=== PATIENT | female | born 1990 | race Caucasian/White ===

== ENCOUNTER 2024-03-25 14:25 | Inpatient (IN) | payer OTHER, SELFPAY ==
[2024-03-25] VITALS (11 sets, daily range): BP systolic 101–128; BP diastolic 64–90; BMI 43.5; BMI 40.6
--- NOTE | 2024-03-25 10:03 | ED.GENMED ---
History of Present Illness
General
Chief Complaint: Abdominal Pain
Time Seen by Provider: 03/25/24 10:02
Travel History
Have you had any contact with someone who has COVID-19?: No
Do you have any symptoms of coronavirus? Fever > 100 degrees, chills, cough, shortness of breath, sore throat, loss of taste or smell, muscle aches, or headache?: No
History of Present Illness
History of Present Illness:
HPI: The patient has about 3 days of lower abdominal cramping. She recently finished her period. She also reports some fevers to just over 100 degrees. She has no respiratory symptoms. The pain is primarily infraumbilical on both sides. She has
some decreased appetite. She gave 13 months ago. She has no pain in her back.
EXAM:
GENERAL: Well appearing in no distress
HEENT: Moist oral mucosa
CARDIOVASCULAR: No murmurs, normal heart rate, regular rhythm, No chest wall tenderness
PULMONARY: No respiratory distress, breath sounds are clear and equal
ABDOMEN: Soft with no peritoneal signs, mild lower abdominal tenderness diffusely, no upper tenderness, no significant tenderness at the periumbilical region
NEUROLOGIC: Excellent strength all extremities, no coordination deficits
PSYCHIATRIC: Appropriate mental status, normal insight and judgement
EXTREMITIES: Nontender, no edema, moves all extremities equally
SKIN: No rash, no lesions
TIME OF INITIAL ENCOUNTER: 10:05 AM
NUMBER AND COMPLEXITY OF PROBLEMS ADDRESSED AT THE ENCOUNTER
� Chronic conditions affecting care: ADHD
� Acute Exacerbation and/or Progression of Chronic Illness: This is an acute problem
� Differential Diagnosis includes: Appendicitis, colitis, mesenteric adenitis, epiploic appendagitis, UTI
AMOUNT AND/OR COMPLEXITY OF DATA TO BE REVIEWED AND ANALYZED
� I performed an independent evaluation of and my interpretation is:
EKG:
CT: I personally reviewed CT imaging and agree with radiologist interpretation that there is significant inflammatory changes consistent with diverticulitis with likely intramural abscess
X-rays:
Laboratory Studies: Mild leukocytosis noted with white count of 12.6, mild transaminase elevation, but bili and alk phos are normal, she does have an increased number of white cells in the urine however this appears to be more
of a contaminated specimen.
Other:
� Review of other/old records: The patient had unremarkable hysterosalpingogram 2021
� Clinical information was obtained by an independent historian: I spoke to at bedside
� Prescriptions/Medications Considered but not given:
� Further testing considered but not performed:
RISK OF COMPLICATIONS AND/OR MORBIDITY OR MORTALITY OF PATIENT MANAGEMENT
� Social determinants of health affecting care: Lives at home with family
� Discussion with other providers: Discussed with Dr. Hunt; Dr. Niño for admission at 1:20 PM
� Escalation of care including admission/observation vs risk of discharge considered: The patient has a few days of abdominal cramping�she does have tenderness in the lower abdomen. Will obtain CT imaging as she also has
tenderness in the right lower quadrant with loss of appetite. CT imaging abnormal�will plan admission for IV antibiotics�IV ordered Zosyn. Mild leukocytosis noted.
Past History
Past History
ED Past Medical History: None
ED Past Surgical History: None
Social History
Tobacco: Non-smoker
Drug: None
Personal: Single
Living: with family
Family History
Family History: Negative Early CAD
Phy Exam
Physical Exam
Physical Exam:
See HPI
Course
Orders/Labs/Results
Orders:
Orders
03/25/24 10:09
0.9% Sodium Chloride 1000 ml [Nss] 1,000 ml IV BOLUS
Ketorolac [Toradol] 15 mg IV NOW STA
03/25/24 10:10
Test Result ONCE
03/25/24 10:14
CT Abd/pelvis W Iv Cont Urgent
Comment:
Reason For Exam: lower abd pain tender; loss of appetite
03/25/24 10:28
Complete Blood Count/With Diff Urgent
Comprehensive Metabolic Panel Urgent
HCG, Serum Qualitative Screen Urgent
Lipase Urgent
03/25/24 10:31
Urinalysis Reflex To Culture Urgent
Date Specimen was Collected: 03/25/24
Time Specimen was Collected: 10:28
Urine Microscopic Reflex Cult Urgent
Urine Culture Urgent
[facility] Source: U
Specimen Description:
Date Specimen was Collected: 03/25/24
Time Specimen was Collected: 10:28
03/25/24 13:12
Piperacillin/Tazo 3.375 Gram [Zosyn] 3.375 gram in 50 ml IV NOW
03/25/24 13:15
Lactic Acid Q4H
Comment: CANCEL 2nd LACTIC ACID IF 1st LACTIC ACID IS LESS THAN 2
Blood Culture Q30M
[facility] Source: Blood/Venous
Specimen Description:
03/25/24 13:45
Blood Culture Q30M
[facility] Source: Blood/Venous
Specimen Description:
03/25/24 17:15
Lactic Acid Q4H
Comment: CANCEL 2nd LACTIC ACID IF 1st LACTIC ACID IS LESS THAN 2
Abnormal Lab Results
03/25/24 03/25/24
10:28 10:31
WBC 12.6 H 10^3/uL
(4.8-10.8)
Abs Immat Gran (auto) 0.1 H 10^3/uL
(0-0.05)
Absolute Neuts (auto) 10.1 H 10^3/uL
(1.4-6.5)
Absolute Monos (auto) 0.8 H 10^3/uL
(0.1-0.6)
Neutrophils % 79.8 H %
(42.2-75.2)
Lymphocytes % 11.8 L %
(20.5-51.1)
Creatinine 0.5 L mg/dL
(0.6-1.0)
Glucose 115 H mg/dl
(70-99)
AST 60 H U/L
(14-36)
ALT 58 H U/L
(0-35)
Urine Ketones Trace A
(Negative)
Urine Bilirubin 1+ A
(Negative)
Leukocyte Esterase Rfl 1+ A
(Negative)
Urine RBC 3-6 A /HPF
(0-2)
Urine WBC (Reflex) 11-15 A /HPF
(0-5)
Urine Bacteria (Reflex) Few A
(Negative)
03/25/24 10:28
03/25/24 10:28
Vital Signs
Initial and Last Documented VS:
Initial Vital Signs
Temp Pulse Resp BP Pulse Ox
98.0 F 91 20 116/80 99
03/25/24 09:52 03/25/24 09:52 03/25/24 09:52 03/25/24 09:52 03/25/24 09:52
Last Documented Vital Signs
Temp Pulse Resp BP Pulse Ox
98.0 F 76 11 105/64 98
03/25/24 09:52 03/25/24 12:15 03/25/24 12:45 03/25/24 12:38 03/25/24 12:45
*Critical Care Note
Total Time (30-74mins, 75-104mins- exclusive of procedures): Not Applicable
ED Attending Note
-
Portions of this chart may have been created with voice recognition software.� Occasional wrong word or��sound alike� substitutions may have occurred due to the inherent limitations of voice recognition software.
Discharge Plan
Departure
Patient Disposition: Admit
Date of Disposition: 03/25/24
Time of Disposition: 13:15
Presentation/result/management discussed w/ accepting MD/DO: Hospitalist
Discharge Problem:
Diverticulitis of intestine with abscess
Prescriptions:
No Action
lansoprazole [Prevacid] 30 MG capsule,delayed release(DR/EC)
30 mg PO DAILY Qty: 14 0RF
Rx Instructions:
Take in the evening
Referrals:
Luis Dominguez MD [Family Provider] -
Interventions
Interventions:
*Risk Screen - Suicide Last Done: 03/25/24 09:52
*General Assessment Last Done: 03/25/24 09:52
*Neglect/Abuse Screening Last Done: 03/25/24 09:52
ED- Fall Risk Assessment Last Done: 03/25/24 10:21
*ED COVID-19 Vaccine History Last Done: 03/25/24 10:20
GE-Wvdayu-Yelvfjcfke Assessment Last Done: 03/25/24 10:44
Discharge Date and Time
Print Language: KYRGYZ
--- NOTE | 2024-03-25 10:06 | EDRN ---
Dr. Griffith in room w/ pt at this time.
[2024-03-25] MEDS: NSS 1000 IV ×2 (10:32→16:17)
[2024-03-25] MEDS: TORADOL 15 MG IV (10:38)
[2024-03-25 10:41] LABS: % Basophils 0.2 % (0-2); % Eosinophils 1.7 % (0-6); % Immature Granulocytes 0.4 % (0-0.5); % Lymphocytes 11.8 % (20.5-51.1); % Monocytes 6.1 % (1.7-9.3); % Neutrophils 79.8 % (42.2-75.2); Absolute Eosinophils 0.2 10^3/uL (0-0.7); Absolute Immature Granulocytes 0.1 10^3/uL (0-0.05); Absolute Lymphocytes 1.5 10^3/uL (1.2-3.4); Absolute Monocytes 0.8 10^3/uL (0.1-0.6); Absolute Neutrophils 10.1 10^3/uL (1.4-6.5); Hemoglobin 12.7 g/dL (12.0-16.0); Mean Corp Hgb Conc. 33.4 g/dL (33.0-37.0); Mean Corpuscular Hgb 29.3 pg (27.0-31.0); Mean Corpuscular Volume 87.6 fL (81.0-99.0); Mean Platelet Volume 9.5 fL (7.4-10.4); Nucleated Red Blood Cells % 0 %; Platelet Count 253 10^3/uL (130-400); Red Blood Cell Count 4.34 10^6/uL (4.20-5.40); Red Cell Dist. Width 12.7 % (11.5-14.5); White Blood Cell Count 12.6 10^3/uL (4.8-10.8)
[2024-03-25 10:44] LABS: Urine Albumin Negative (Neg - Trace); Urine Bilirubin 1+ (Negative); Urine Character Slightly Cloudy (Clear); Urine Color Yellow; Urine Glucose Negative (Negative); Urine Ketone Trace (Negative); Urine Leukocyte 1+ (Negative); Urine Nitrite Negative (Negative); Urine Occult Blood Negative (Negative); Urine Specific Gravity 1.025 (<1.030); Urine Urobilinogen Negative (Neg - 1+)
[2024-03-25 10:56] LABS: HCG, Serum Qualitative Screen Negative
[2024-03-25 10:58] LABS: Urine Amorphous Seen; Urine Bacteria Few (Negative); Urine Squamous Cell >30 /LPF (Few)
[2024-03-25 10:59] LABS: ALT (SGPT) 58 U/L (0-35); AST (SGOT) 60 U/L (14-36); Albumin 3.7 g/dl (3.5-5.0); Alkaline Phosphatase 109 U/L (38-126); Blood Urea Nitrogen 10 mg/dl (7-17); Calcium 9.1 mg/dl (8.4-10.2); Carbon Dioxide 23 mmol/L (22-30); Chloride 106 mmol/L (98-107); Estimated Creatinine Clearance > 125 ml/min; Glucose 115 mg/dl (70-99); Potassium 4.1 mmol/L (3.5-5.1); Sodium 140 mmol/L (135-145); Total Bilirubin 0.6 mg/dl (0.2-1.3); Total Protein 6.7 g/dl (6.3-8.2); eGFR > 60.00
[2024-03-25 11:25] LABS: Lipase 40 U/L (23-300)
--- NOTE | 2024-03-25 13:18 | EDRN ---
Dr. Griffith in room w/pt at this time.
--- NOTE | 2024-03-25 13:26 | HPS.HSE ---
Family Physician
<GERHARD Rincon - Last Filed: 03/25/24 14:29>
-
Family Physician: Luis Dominguez
Chief Complaint
<GERHARD Rincon - Last Filed: 03/25/24 14:29>
-
Lower abdominal pain x 3 days
History of Present Illness
33-year-old female from home complaining of 3 days of lower abdominal cramping post menses. She reports low-grade temp of 100 F with decreased appetite for the last 3 days. She has been taking 460 mg to 3 times a day for pain. She denies
headache, fever, chills, chest pain, palpitations, shortness with, cough, nausea, urinary symptoms. In the ER she was noted to have sigmoid diverticulitis with intramural abscess. Past medical history includes ADHD, 1 para 1
section 13 months ago.
Medical History
<GERHARD Rincon - Last Filed: 03/25/24 14:29>
Past Medical History
Past Medical History: Reports Other (ADHD)
Past Surgical History: Reports Other ( section x 113 months ago)
Social History
Tobacco: Non-smoker
Alcohol: Occasional
Drug: None
Personal:
Living: With Family ( and child)
Family History
Family History: Other (Father hypertension)
Allergies / Home Medications
Allergies reflects when Allergies were last updated in [facility] [facility].
Home Medications with original date entered in [facility] [facility]
Allergy/Medication List:
Allergies
Allergy/AdvReac Type Severity Reaction Status Date / Time
Sulfa (Sulfonamide Allergy Unknown Verified 03/25/24 09:59
Antibiotics)
Home Medications
ibuprofen 200 mg tablet (Advil) 200 mg PO TIDPRN PRN mild pain 03/25/24
methylphenidate HCl 36 mg tablet,extended release 24 hr 36 mg PO MOTUWETHFR 03/25/24
Review of Systems
<GERHARD Rincon - Last Filed: 03/25/24 14:29>
-
History Source: Patient
A 12 point ROS was completed and negative except as noted: Yes
Constitutional: Denies Fever, Fatigue or Chills
EENT: Denies Sore Throat or Runny Nose
Respiratory: Denies Cough or Trouble Breathing
Cardiac: Denies Chest Pain, Palpitations or Syncope
Abdomen/GI: Reports Abdominal Pain (Suprapubic, left lower quadrant); Denies Nausea, Vomiting, Diarrhea or Constipated
: Denies Dysuria, Frequency, Flank Pain or Incontinence
Musculoskeletal: Denies Joint Pain or Edema
Skin: Denies Itching or Rash
Neurological: Denies Dizzy, Headache or Weakness
Endocrine: Reports No Symptoms
Hematologic/Lymphatic: Reports No Symptoms
Psych: Reports Calm
Physical Exam
<GERHARD Rincon - Last Filed: 03/25/24 14:29>
Vital Signs
Vital Signs
Temp Pulse Resp BP Pulse Ox
98.0 F 76 11 105/64 98
03/25/24 09:52 03/25/24 12:15 03/25/24 12:45 03/25/24 12:38 03/25/24 12:45
Physical Exam
General: Comfortable, Conversant and Pain; No Fever or Chills
HEENT: NormoCephalic, Anicteric, Moist mucous membranes, PERRLA and [place] Conjunctivae
Respiratory: Clear; No Wheezes, Rales or Rhonchi
Cardiac: S1/S2 and Regular Rhythm; No Murmur, Rub or Gallop
Breast: Deferred by me
GI: Soft, Non Distended, Normal Bowel Sounds, Tender (Left lower quadrant, suprapubic) and No Hepatosplenomegaly
Genito-urinary: Deferred by me
Musculoskeletal: No Clubbing, No Cyanosis and No Edema
Skin: Warm and Dry; No Rash or Jaundice
Neuro: AO x 3, No Motor Deficits, Nonfocal/grossly intact, Cranial Nerves Intact and No Sensory Deficits; No Slurred Speech, Facial Droop or Tremors
Psych: Calm
Laboratory Results
<GERHARD Rincon - Last Filed: 03/25/24 14:29>
-
03/25/24 10:28
03/25/24 10:28
Laboratory Results
Total Bilirubin 0.6 mg/dl (0.2-1.3) 03/25/24 10:28
AST 60 U/L (14-36) H 03/25/24 10:28
ALT 58 U/L (0-35) H 03/25/24 10:28
Alkaline Phosphatase 109 U/L (38-126) 03/25/24 10:28
Lipase 40 U/L (23-300) 03/25/24 10:28
Data Reviewed
<GERHARD Rincon - Last Filed: 03/25/24 14:29>
-
CT Scan: Report Reviewed by me
Lab Data: Labs Reviewed by me
Impression/Plan
<GERHARD Rincon - Last Filed: 03/25/24 14:29>
-
Impression/plan:
Admit to [facility]
#Acute diverticulitis sigmoid colon with intramural abscess
-WBC 12.6 with left shift, 98 F, HR 76, 105/64
-Blood cultures x 2
-N.p.o. except sips water
-IV NSS
-IV Zosyn
-IV Toradol, IV Zofran
-Consult colorectal surgery
- pt counseled on follow up for colonoscopy post recovery
CT abdomen pelvis with IV contrast:
1. Severe acute diverticulitis in the mid sigmoid colon
2. 2.6 intramural abscess in the wall of the sigmoid colon 2.0 x 1.7 x 2.6 cm
3. Minimal pelvic ascites
4. Mild hepatomegaly
5. Tiny obstructing bilateral intrarenal calculi
#Acute transaminitis likely reactive
AST 60, ALT 58
-Follow CMP
#ADHD
Patient takes methylphenidate 36 mg Tuesday through Tuesday but not Tuesday or Tuesday
DVT prophylaxis
SCDs
Full code
<Saman Niño MD - Last Filed: 03/25/24 14:44>
-
Impression/plan:
Admit to [facility]
#Acute diverticulitis sigmoid colon with intramural abscess
-WBC 12.6 with left shift, 98 F, HR 76, 105/64
-Blood cultures x 2
-N.p.o. except sips water
-IV NSS
-IV Zosyn
-IV Toradol, IV Zofran
-Consult colorectal surgery
- pt counseled on follow up for colonoscopy post recovery
CT abdomen pelvis with IV contrast:
1. Severe acute diverticulitis in the mid sigmoid colon
2. 2.6 intramural abscess in the wall of the sigmoid colon 2.0 x 1.7 x 2.6 cm
3. Minimal pelvic ascites
4. Mild hepatomegaly
5. Tiny obstructing bilateral intrarenal calculi
#Acute transaminitis likely reactive
AST 60, ALT 58
-Follow CMP
#ADHD
Patient takes methylphenidate 36 mg Tuesday through Tuesday but not Tuesday or Tuesday
DVT prophylaxis
SCDs
Full code
Addendum
I saw and examined the patient.
The [employer] [facility]ENT CALL C[facility] AGENT or PA's note was reviewed and I agree with the note.
Comment:
33 yo female presented with left lower abdominal pain and fevers. She denies nausea or vomiting. She denies diarrhea or constipation. In the ER she was noted to have sigmoid diverticulitis with intramural abscess. She denied family history of
diverticulitis or colon cancer.
Physical Exam
General: Comfortable, Conversant and Pain; No Fever or Chills
HEENT: NormoCephalic, Anicteric, Moist mucous membranes, PERRLA and [place] Conjunctivae
Respiratory: Clear; No Wheezes, Rales or Rhonchi
Cardiac: S1/S2 and Regular Rhythm; No Murmur, Rub or Gallop
GI: Soft, Non Distended, Normal Bowel Sounds, Tender (Left lower quadrant, suprapubic)
Genito-urinary: No [place]
Musculoskeletal: No Clubbing, No Cyanosis and No Edema
Skin: Warm and Dry; No Rash or Jaundice
Neuro: AO x 3, No Motor Deficits, Nonfocal/grossly intact, Cranial Nerves Intact and No Sensory Deficits; No Slurred Speech, Facial Droop or Tremors
Psych: Calm
# Acute diverticulitis sigmoid colon with intramural abscess
Mild Sepsis POA
-WBC 12.6 with left shift, 98 F, HR 76, 105/64
-Blood cultures x 2
-N.p.o. except sips water
-IV NSS
-IV Zosyn
-IV Toradol, IV Zofran
- Appreciate surgery help
- pt counseled on follow up for colonoscopy post recovery
CT abdomen pelvis with IV contrast:
1. Severe acute diverticulitis in the mid sigmoid colon
2. 2.6 intramural abscess in the wall of the sigmoid colon 2.0 x 1.7 x 2.6 cm
3. Minimal pelvic ascites
4. Mild hepatomegaly
5. Tiny obstructing bilateral intrarenal calculi
#Acute transaminitis likely reactive
AST 60, ALT 58
No Jaundice
-Follow CMP
# Obesity BMI 43
#ADHD
Patient takes methylphenidate 36 mg Tuesday through Tuesday but not Tuesday or Tuesday
DVT prophylaxis
Total time spent to see the patient, examine the patient on the floor, review data and lab results, discuss treatment plan with patient, ER doctor and nursing staff around 75 minutes
--- NOTE | 2024-03-25 13:42 | EDRN ---
Halima Baldwin EARLY HEAD START DIRECTOR in to see pt at this time.
[2024-03-25 13:47] LABS: Lactic Acid 0.7 mmol/L (0.7-2.0)
[2024-03-25] MEDS: ZOSYN 50 IV ×2 (13:51→20:04)
--- NOTE | 2024-03-25 13:54 | EDRN ---
Aleena PACHECO w/ general surgery/Dr. Hunt is in room w/ pt at this time.
--- NOTE | 2024-03-25 14:04 | CON.CRS ---
Addendum entered and electronically signed by Vincent Hunt MD 03/25/24 17:33:
Patient seen and examined independently of nurse practitioner. Agree with documented consultation which is consistent with my current examination and evaluation of the patient.
HPI: 33-year-old female who was in her baseline state of health until evening when she began to notice abdominal pain and cramping predominantly in the suprapubic and left lower quadrant. Pain persisted and increased in severity throughout
the weekend. She has been able to tolerate a diet including solid food but has been eating business development intern. No anorexia. No nausea, no vomiting. No significant abdominal bloating or distention. She states that she continues to pass flatus and have
bowel movement once which appear regular for her, no diarrhea or constipation. Her pain has been relatively stable for the last day or so but last night she had a fever to 101.3. With her constellation of symptoms not improving she presented for
emergency department evaluation today which has identified sigmoid diverticulitis with an intramural abscess.
On further discussion she has never had any similar pain like this in the past.
She denies any significant pertinent medical history. Past surgical history only notable for . No prior colonoscopies and GI health previously well.
Afebrile since emergency department evaluation. Vital signs are stable
No acute distress, comfortably lying in hospital bed
Abdomen: Soft, tenderness to palpation with voluntary guarding and rebound on deep palpation left lower quadrant and suprapubic. No generalized tenderness and nontender on palpation in the upper abdomen and right lower quadrant.
Laboratory testing reviewed. White blood cell count 12.6 with neutrophil shift. BMP unremarkable.
CT abdomen/pelvis personally reviewed and interpreted as well as radiologist report. Sigmoid: Wall thickening with suspected intramural abscess. Some localized extraluminal air around this area of phlegmonous changes. No will organize abscess for
drainage. Trace free fluid. No remote extraluminal air.
Assessment/plan: 33-year-old female presenting with acute sigmoid diverticulitis complicated by phlegmon extending into region of sigmoid colon mesentery and contained mural abscess. No remote free air or signs of free perforation.
Abdominal examination with localized peritonitis to the left lower quadrant, not generalized. Vital signs stable without signs of sepsis.
Given patient's stability we discussed continued plan for medical management.
Reviewed pathophysiology and natural history of diverticular disease
Continue bowel rest
IV fluid hydration
Zosyn for empiric antibiotic coverage
Repeat CBC tomorrow a.m., follow fever curves, follow abdominal examination.
Consideration for repeat imaging pending clinical course.
Will follow.
Original Note:
Consultation
-
Requesting Provider: Nacho
Performing Provider: Jann Hunt
Reason for Consultation: Diverticulitis
Medical History
-
Chief Complaint: fevers, abdominal pain
History of Present Illness:
This is a 33 yo female with a history of who presents with left lower abdominal pain and fevers. Her pain began on evening in the left abdomen to suprapubic areas. Initially, she attributed her discomfort to menstrual cramps;
however, the pain persisted and she began having fevers as well all through the weekend. Last night she reports a fever of 101.3. She denies nausea or vomiting. She denies diarrhea or constipation. She has been eating light foods but denies
decreased appetite. Given her persistent pain with fevers, she presented today through the ED for evaluation.
Past Medical History
Past Medical History: Psychiatric (ADHD)
Past Surgical History:
Social History
Tobacco: Non-Smoker
Alcohol: Occasional
Living: With Family
Family History
Family History: Reviewed & Not Pertinent
Allergies / Home Medications
Allergy/AdvReac Type Severity Reaction Status Date / Time
Sulfa (Sulfonamide Allergy Unknown Verified 03/25/24 09:59
Antibiotics)
�Medication �Instructions �Recorded �Confirmed �Type
ibuprofen 200 mg tablet (Advil) 200 mg PO TIDPRN PRN mild pain 03/25/24 03/25/24 History
methylphenidate HCl 36 mg 36 mg PO MOTUWETHFR 03/25/24 03/25/24 History
tablet,extended release 24 hr
Review of Systems
-
History Source: Patient
All other systems: Negative unless noted
A 10 point review of systems was completed, and was negative except as per HPI.
Physical Exam
Vital Signs
Temp 98.0 F 03/25/24 09:52
Pulse 85 03/25/24 13:00
Resp Rate 20 03/25/24 13:00
Blood pressure 106/78 03/25/24 13:00
SaO2 98 03/25/24 13:00
03/24/24 03/25/24 03/26/24
06:59 06:59 06:59
Actual Weight 107.7 kg
Body Mass Index (BMI) 43.5
Lab Results / Allergies
03/25/24 10:28
03/25/24 10:28
WBC 12.6 10^3/uL (4.8-10.8) H 03/25/24 10:28
Hgb 12.7 g/dL (12.0-16.0) 03/25/24 10:28
Hct 38.0 % (37.0-47.0) 03/25/24 10:28
Plt Count 253 10^3/uL (130-400) 03/25/24 10:28
Abs Immat Gran (auto) 0.1 10^3/uL (0-0.05) H 03/25/24 10:28
Neutrophils % 79.8 % (42.2-75.2) H 03/25/24 10:28
Allergy/AdvReac Type Severity Reaction Status Date / Time
Sulfa (Sulfonamide Allergy Unknown Verified 03/25/24 09:59
Antibiotics)
Physical Exam
General: Well Developed, Well Nourished and No Apparent Distress
HEENT: Moist Mucous Membranes
Respiratory: Non Labored Respirations
GI: Soft and Tender (left lower quadrant with focal area of tenderness just left of midline)
Neuro: Awake, Alert and AO x 3
Psych: Calm
Data Reviewed
-
CT Scan: Image Personally Visualized and interpreted, Report Reviewed by me, Discussed with Physician, Discussed with Nurse and Discussed with Patient
Labs: Labs Reviewed by me, Discussed with Physician, Discussed with Nurse and Discussed with Patient
Old Records: Reviewed
Assessment / Plan
-
33 yo female presenting with 3-4 day history of LLQ pain and intermittent fevers. She is tender to the LLQ on exam with CT findings consistent with sigmoid diverticulitis complicated by a 2.6 cm intramural abscess in the wall of the sigmoid colon
without free air or perforation noted. Mild leukocytosis present. Afebrile here, VSS. Denies n/v/c/d.
No plan for emergent surgery at this time. Will follow exams, labs, fever trend with bowel rest and IV antibiotics.
--NPO with sips of clears
--Continue IV abx
--IVF for hydration
--Analgesics prn
--Discussed with admitting hospitalist team
--- NOTE | 2024-03-25 14:41 | EDRN ---
Pt states that pain is at a 2/10 at this time but she keeps getting flare ups that last tamir 20-30 seconds at 8-10/10.
[2024-03-25] MEDS: TORADOL 30 MG IV (16:37)
[2024-03-25] MEDS: TYLENOL 650 MG PO (21:01)
[2024-03-26] MEDS: NSS 1000 IV ×2 (01:52→13:34)
[2024-03-26] MEDS: ZOSYN 50 IV ×4 (01:52→20:03)
[2024-03-26 05:51] LABS: % Basophils 0.2 % (0-2); % Eosinophils 1.8 % (0-6); % Immature Granulocytes 0.5 % (0-0.5); % Lymphocytes 13.6 % (20.5-51.1); % Neutrophils 77.9 % (42.2-75.2); Absolute Eosinophils 0.2 10^3/uL (0-0.7); Absolute Immature Granulocytes 0.1 10^3/uL (0-0.05); Absolute Lymphocytes 1.7 10^3/uL (1.2-3.4); Absolute Monocytes 0.7 10^3/uL (0.1-0.6); Absolute Neutrophils 9.7 10^3/uL (1.4-6.5); Hematocrit 35.8 % (37.0-47.0); Mean Corp Hgb Conc. 33.5 g/dL (33.0-37.0); Mean Corpuscular Hgb 29.1 pg (27.0-31.0); Mean Corpuscular Volume 86.9 fL (81.0-99.0); Mean Platelet Volume 9.6 fL (7.4-10.4); Nucleated Red Blood Cells % 0 %; Platelet Count 271 10^3/uL (130-400); Red Blood Cell Count 4.12 10^6/uL (4.20-5.40); Red Cell Dist. Width 12.4 % (11.5-14.5); White Blood Cell Count 12.4 10^3/uL (4.8-10.8)
[2024-03-26 06:14] LABS: ALT (SGPT) 69 U/L (0-35); AST (SGOT) 42 U/L (14-36); Albumin 3.3 g/dl (3.5-5.0); Alkaline Phosphatase 106 U/L (38-126); Blood Urea Nitrogen 10 mg/dl (7-17); Calcium 8.6 mg/dl (8.4-10.2); Carbon Dioxide 21 mmol/L (22-30); Chloride 109 mmol/L (98-107); Estimated Creatinine Clearance > 125 ml/min; Glucose 80 mg/dl (70-99); Potassium 4.1 mmol/L (3.5-5.1); Sodium 139 mmol/L (135-145); Total Bilirubin 0.9 mg/dl (0.2-1.3); Total Protein 6.2 g/dl (6.3-8.2); eGFR > 60.00
[2024-03-26 07:00] VITALS: BP 112/76
[2024-03-26 09:53] VITALS: BMI 40.6
--- NOTE | 2024-03-26 10:11 | PTOTSP ---
ORDERS RECEIVED AND CHART REVIEWED. PATIENT IS A 33 Y/O ADMITTED WITH ACUTE DIVERTICULITIS. PATIENT OBSERVED IN ROOM, STANDING AT SINK INDEPENDENTLY, NO ISSUES REPORTED. PATIENT IS DECLINING THE NEED FOR ACUTE CARE SKILLED P.T. WILL DISCHARGE FROM
P.T. SERVICES AT THIS TIME.
--- NOTE | 2024-03-26 10:49 | W.PN.GS2 ---
Addendum entered and electronically signed by Laith Mcclellan MD 03/26/24 16:32:
I saw and examined the patient independently.
The Instructional Technology Instructor's note was reviewed and I agree with the note, assessment and plan except where noted below.
Comment: 33-year-old female who presents with first episode of diverticulitis, uncomplicated transmural abscess noted on CT. Clinically improving.
Clears today, anticipate advancing to a low residue diet tomorrow.
Potential discharge home on 7 to 10-day course of antibiotics tomorrow.
General surgery will continue to follow, patient will see Dr. Hunt as an outpatient. Anticipate colonoscopy in 6 to 8 weeks.
Original Note:
Today's Communication / Plan
-
Clear liquids
Assessment / Plan
-
Assessment/plan: 33-year-old female presenting with acute sigmoid diverticulitis complicated by phlegmon extending into region of sigmoid colon mesentery and contained mural abscess. No remote free air or signs of free perforation.
Abdominal examination with localized peritonitis to the left lower quadrant, not generalized. Vital signs stable without signs of sepsis.
WBC similiar to previous but no further fevers. Tmax 99.8. VSS
Clear liquids
IV fluid hydration
Zosyn for empiric antibiotic coverage
Follow CBC and exams
Consideration for repeat imaging pending clinical course.
Will follow.
Subjective Data
-
Date of Service: March 26, 2024
Patient seen and examined at bedside. Feeling a little better although pain remains. No further fevers.
Objective Data
-
Intake and Output
03/25/24 03/26/24 03/27/24
06:59 06:59 06:59
Intake Total 1200 / 1200
Output Total 0 / 0
Balance 1200 / 1200
Intake:
Oral fluids 0 / 0
IV fluids (Total) 1100 / 1100
IV piggybacks 100 / 100
Output:
Urine, Voided 0 / 0
Other:
Number of approximated MODERATE 2
amounts of urine
Vital Signs
Temp Pulse Resp BP Pulse Ox
99.8 F 96 18 112/76 98
03/26/24 07:00 03/26/24 07:00 03/26/24 07:00 03/26/24 07:00 03/26/24 07:00
Lab Results
03/26/24 05:25
03/26/24 05:25
Calcium 8.6 mg/dl (8.4-10.2) 03/26/24 05:25
Total Bilirubin 0.9 mg/dl (0.2-1.3) 03/26/24 05:25
AST 42 U/L (14-36) H 03/26/24 05:25
ALT 69 U/L (0-35) H 03/26/24 05:25
Alkaline Phosphatase 106 U/L (38-126) 03/26/24 05:25
Total Protein 6.2 g/dl (6.3-8.2) L 03/26/24 05:25
Albumin 3.3 g/dl (3.5-5.0) L 03/26/24 05:25
Physical Exam
-
NAD
ABD soft, tender to light palpation to the LLQ, ND, MOTION PICTURE FILM EXAMINER
--- NOTE | 2024-03-26 11:53 | W.PN.HOSP.TC ---
Today's Communication/Plan
-
Monitor vital signs and see plan
Continue with antibiotics
Pain control
started clears; monitor
Colorectal surgery following
Assessment / Plan
Assessment / Plan
General: Comfortable, Conversant and Pain
HEENT: NormoCephalic, Anicteric, Moist mucous membranes
Respiratory: Clear; No Wheezes, Rales or Rhonchi
Cardiac: S1/S2 and Regular Rhythm; No Murmur
GI: Soft, Non Distended, Normal Bowel Sounds, Tender (Left lower quadrant, suprapubic)
Musculoskeletal: No Clubbing, No Cyanosis and No Edema
Neuro: AO x 3, No Motor Deficits, Nonfocal/grossly intact
Psych: Calm
Acute diverticulitis sigmoid colon with intramural abscess
follow bcx
now started on clears
IVF
cw abx
pain control, IV Zofran
colorectal surgery following
- pt counseled on follow up for colonoscopy post recovery
CT abdomen pelvis with IV contrast:
1. Severe acute diverticulitis in the mid sigmoid colon
2. 2.6 intramural abscess in the wall of the sigmoid colon 2.0 x 1.7 x 2.6 cm
3. Minimal pelvic ascites
4. Mild hepatomegaly
5. Tiny obstructing bilateral intrarenal calculi
#Acute transaminitis likely reactive
-Follow CMP
#ADHD
Patient takes methylphenidate 36 mg Tuesday through Tuesday but not Tuesday or Tuesday; per patient she takes only when she is working. spoke with pharmacy,will hold it for now
DVT prophylaxis
SCDs
Full code
Anticipated Discharge: 24 - 48 hours
Subjective/Interval History
-
Date of Service: March 26, 2024
still has some abdominal pain
Objective Data
-
Labs:
Laboratory Results
03/26/24
05:25
WBC 12.4 H
Hgb 12.0
Hct 35.8 L
Plt Count 271
Sodium 139
Potassium 4.1
Chloride 109 H
Carbon Dioxide 21 L
BUN 10
Creatinine 0.6
Glucose 80
Calcium 8.6
Total Bilirubin 0.9
AST 42 H
ALT 69 H
Alkaline Phosphatase 106
Vital Signs:
Vital Signs
Temp Pulse Resp BP Pulse Ox
99.8 F 96 18 112/76 98
03/26/24 07:00 03/26/24 07:00 03/26/24 07:00 03/26/24 07:00 03/26/24 07:00
I&O
03/25/24 03/26/24 03/27/24
06:59 06:59 06:59
Intake Total 1200 / 1200
Output Total 0 / 0
Balance 1200 / 1200
[2024-03-26 15:00] VITALS: BP 112/71
--- NOTE | 2024-03-26 16:13 | CM ---
Alert awake oriented patient who lives with [facility] 1 story home with 1 step to enter and 0 steps to bed room . She is independent in driving and all activities of daily living.Offered VN she declined.
No SNF/VN hx
Pharmacy [facility]
PCP Dr Omalley
PLAN Home no needs
[2024-03-26] MEDS: TYLENOL 650 MG PO (18:31)
[2024-03-26] MEDS: TORADOL 30 MG IV (20:07)
[2024-03-26 23:00] VITALS: BP 114/81
[2024-03-27] MEDS: NSS 1000 IV (00:33)
[2024-03-27] MEDS: ZOSYN 50 IV ×4 (02:22→20:58)
[2024-03-27 05:56] LABS: % Basophils 0.3 % (0-2); % Eosinophils 3.5 % (0-6); % Immature Granulocytes 0.3 % (0-0.5); % Lymphocytes 24.8 % (20.5-51.1); % Monocytes 8.1 % (1.7-9.3); Absolute Eosinophils 0.3 10^3/uL (0-0.7); Absolute Lymphocytes 1.9 10^3/uL (1.2-3.4); Absolute Monocytes 0.6 10^3/uL (0.1-0.6); Absolute Neutrophils 4.9 10^3/uL (1.4-6.5); Hematocrit 32.8 % (37.0-47.0); Hemoglobin 11.1 g/dL (12.0-16.0); Mean Corp Hgb Conc. 33.8 g/dL (33.0-37.0); Mean Corpuscular Hgb 29.1 pg (27.0-31.0); Mean Corpuscular Volume 86.1 fL (81.0-99.0); Mean Platelet Volume 9.3 fL (7.4-10.4); Nucleated Red Blood Cells % 0 %; Platelet Count 259 10^3/uL (130-400); Red Blood Cell Count 3.81 10^6/uL (4.20-5.40); Red Cell Dist. Width 12.4 % (11.5-14.5); White Blood Cell Count 7.8 10^3/uL (4.8-10.8)
[2024-03-27 06:10] LABS: ALT (SGPT) 38 U/L (0-35); AST (SGOT) 16 U/L (14-36); Albumin 2.8 g/dl (3.5-5.0); Alkaline Phosphatase 85 U/L (38-126); Blood Urea Nitrogen 7 mg/dl (7-17); Calcium 8.3 mg/dl (8.4-10.2); Carbon Dioxide 27 mmol/L (22-30); Chloride 109 mmol/L (98-107); Estimated Creatinine Clearance > 125 ml/min; Glucose 94 mg/dl (70-99); Potassium 3.9 mmol/L (3.5-5.1); Sodium 141 mmol/L (135-145); Total Bilirubin 0.4 mg/dl (0.2-1.3); Total Protein 5.4 g/dl (6.3-8.2); eGFR > 60.00
[2024-03-27 07:00] VITALS: BP 121/85
--- NOTE | 2024-03-27 08:19 | W.PN.GS2 ---
Today's Communication / Plan
-
-- LRD
-- HLIV
-- Zosyn for empiric antibiotic coverage, Augmenin on DC
-- Tentative plan for DC tomorrow on 7 to 10-day course of antibiotics tomorrow.
-- General surgery will continue to follow, patient will see Dr. Hunt as an outpatient. Anticipate colonoscopy in 6 to 8 weeks.
Assessment / Plan
-
Assessment/plan: 33-year-old female presenting with acute sigmoid diverticulitis complicated by phlegmon extending into region of sigmoid colon mesentery and contained mural abscess. No remote free air or signs of free perforation.
AVSS
Leukocytosis resolved
Tolerating diet advancement
-- LRD
-- HLIV
-- Zosyn for empiric antibiotic coverage, Augmentin on DC
-- Tentative plan for DC tomorrow on 7 to 10-day course of antibiotics tomorrow.
-- General surgery will continue to follow, patient will see Dr. Hunt as an outpatient. Anticipate colonoscopy in 6 to 8 weeks.
Subjective Data
-
Date of Service: March 27, 2024
Pain improved, continued mild discomfort with flexing of the abdomen or palpation. No fevers. No nausea or vomiting. Passing flatus and nonbloody stools. Ambulating. Voiding.
Objective Data
-
Intake and Output
03/26/24 03/27/24 03/28/24
06:59 06:59 06:59
Intake Total 1200 / 1200 600 / 600
Output Total 0 / 0
Balance 1200 / 1200 600 / 600
Intake:
Oral fluids 0 / 0 600 / 600
IV fluids (Total) 1100 / 1100
IV piggybacks 100 / 100
Output:
Urine, Voided 0 / 0
Other:
Number of approximated MODERATE 2 2
amounts of urine
Number of approximated LARGE 1
amounts of urine
Vital Signs
Temp Pulse Resp BP Pulse Ox
98.7 F 85 18 121/85 98
03/27/24 07:00 03/27/24 07:00 03/27/24 07:00 03/27/24 07:00 03/27/24 07:00
Lab Results
03/27/24 05:25
03/27/24 05:25
Calcium 8.3 mg/dl (8.4-10.2) L 03/27/24 05:25
Total Bilirubin 0.4 mg/dl (0.2-1.3) 03/27/24 05:25
AST 16 U/L (14-36) 03/27/24 05:25
ALT 38 U/L (0-35) H 03/27/24 05:25
Alkaline Phosphatase 85 U/L (38-126) 03/27/24 05:25
Total Protein 5.4 g/dl (6.3-8.2) L 03/27/24 05:25
Albumin 2.8 g/dl (3.5-5.0) L 03/27/24 05:25
Physical Exam
-
Gen: NAD
Abd: obese, soft, mild tenderness in suprapubic area, ND, non-peritoneal
[2024-03-27] MEDS: NSS IV (11:24)
--- NOTE | 2024-03-27 12:51 | W.PN.HOSP.TC ---
Today's Communication/Plan
-
Monitor vital signs and see plan
Continue with antibiotics
Monitor symptoms with diet
Hopeful discharge tomorrow with p.o. antibiotics
Assessment / Plan
Assessment / Plan
General: Comfortable, Conversant and Pain
HEENT: NormoCephalic, Anicteric, Moist mucous membranes
Respiratory: Clear; No Wheezes, Rales or Rhonchi
Cardiac: S1/S2 and Regular Rhythm; No Murmur
GI: Soft, Non Distended, Normal Bowel Sounds, Tender (Left lower quadrant, suprapubic)
Musculoskeletal: No Edema
Neuro: AO x 3, No Motor Deficits, Nonfocal/grossly intact
Psych: Calm
Acute diverticulitis sigmoid colon with intramural abscess
follow bcx
now advance to low residue diet, will continue to monitor
DC IVF
Hopeful discharge tomorrow if continues to improve, surgery following
cw abx
pain control, IV Zofran
- pt counseled on follow up for colonoscopy post recovery
CT abdomen pelvis with IV contrast:
1. Severe acute diverticulitis in the mid sigmoid colon
2. 2.6 intramural abscess in the wall of the sigmoid colon 2.0 x 1.7 x 2.6 cm
3. Minimal pelvic ascites
4. Mild hepatomegaly
5. Tiny obstructing bilateral intrarenal calculi
#Acute transaminitis likely reactive
-Follow CMP
#ADHD
Patient takes methylphenidate 36 mg Tuesday through Tuesday but not Tuesday or Tuesday; per patient she takes only when she is working. spoke with pharmacy,will hold it for now
DVT prophylaxis
SCDs
Full code
Anticipated Discharge: Within 24 hours
Subjective/Interval History
-
Date of Service: March 27, 2024
has mild abdominal cramping
Objective Data
-
Labs:
Laboratory Results
03/27/24
05:25
WBC 7.8
Hgb 11.1 L
Hct 32.8 L
Plt Count 259
Sodium 141
Potassium 3.9
Chloride 109 H
Carbon Dioxide 27
BUN 7
Creatinine 0.6
Glucose 94
Calcium 8.3 L
Total Bilirubin 0.4
AST 16
ALT 38 H
Alkaline Phosphatase 85
Vital Signs:
Vital Signs
Temp Pulse Resp BP Pulse Ox
98.7 F 85 18 121/85 98
03/27/24 07:00 03/27/24 07:00 03/27/24 07:00 03/27/24 07:00 03/27/24 07:00
I&O
03/26/24 03/27/24 03/28/24
06:59 06:59 06:59
Intake Total 1200 / 1200 600 / 600
Output Total 0 / 0
Balance 1200 / 1200 600 / 600
[2024-03-27 15:00] VITALS: BP 120/86
[2024-03-27] MEDS: TYLENOL 650 MG PO (17:13)
[2024-03-27 23:32] VITALS: BP 119/80
[2024-03-28] MEDS: TORADOL 30 MG IV ×2 (00:09→13:17)
[2024-03-28] MEDS: ZOSYN 50 IV ×4 (01:57→20:00)
[2024-03-28 05:40] LABS: % Basophils 0.3 % (0-2); % Eosinophils 3.2 % (0-6); % Immature Granulocytes 0.6 % (0-0.5); % Lymphocytes 21.9 % (20.5-51.1); % Monocytes 8.3 % (1.7-9.3); % Neutrophils 65.7 % (42.2-75.2); Absolute Eosinophils 0.3 10^3/uL (0-0.7); Absolute Immature Granulocytes 0.1 10^3/uL (0-0.05); Absolute Lymphocytes 2.2 10^3/uL (1.2-3.4); Absolute Monocytes 0.8 10^3/uL (0.1-0.6); Absolute Neutrophils 6.7 10^3/uL (1.4-6.5); Hematocrit 33.7 % (37.0-47.0); Hemoglobin 11.2 g/dL (12.0-16.0); Mean Corp Hgb Conc. 33.2 g/dL (33.0-37.0); Mean Corpuscular Hgb 28.8 pg (27.0-31.0); Mean Corpuscular Volume 86.6 fL (81.0-99.0); Nucleated Red Blood Cells % 0 %; Platelet Count 279 10^3/uL (130-400); Red Blood Cell Count 3.89 10^6/uL (4.20-5.40); Red Cell Dist. Width 12.4 % (11.5-14.5); White Blood Cell Count 10.1 10^3/uL (4.8-10.8)
[2024-03-28 06:17] LABS: ALT (SGPT) 29 U/L (0-35); AST (SGOT) 15 U/L (14-36); Albumin 3.1 g/dl (3.5-5.0); Alkaline Phosphatase 85 U/L (38-126); Blood Urea Nitrogen 7 mg/dl (7-17); Calcium 8.6 mg/dl (8.4-10.2); Carbon Dioxide 25 mmol/L (22-30); Chloride 107 mmol/L (98-107); Estimated Creatinine Clearance 125 ml/min; Glucose 102 mg/dl (70-99); Potassium 4.2 mmol/L (3.5-5.1); Sodium 139 mmol/L (135-145); Total Bilirubin 0.4 mg/dl (0.2-1.3); Total Protein 5.8 g/dl (6.3-8.2); eGFR > 60.00
[2024-03-28 07:00] VITALS: BP 110/77
--- NOTE | 2024-03-28 08:32 | W.PN.GS2 ---
Today's Communication / Plan
-
DC home with PO abx
Assessment / Plan
-
Assessment/plan: 33-year-old female presenting with acute sigmoid diverticulitis complicated by phlegmon extending into region of sigmoid colon mesentery and contained mural abscess. No remote free air or signs of free perforation.
VSS, low grade temps
Leukocytosis resolved
Tolerating diet advancement
Remains mildly ttp on exam but prefers to go home, advised to monbitor temp at home and call if develops fevers/worsening pain/n/v
-- DC on 10-day course of antibiotics today.
-- patient will see Dr. Hunt as an outpatient. Anticipate colonoscopy in 6 to 8 weeks.
Subjective Data
-
Date of Service: March 28, 2024
Tmax 99.6F, pain improving, inder PO, ambulating, passing BM/flatus, voiding
Objective Data
-
Intake and Output
03/27/24 03/28/24 03/29/24
06:59 06:59 06:59
Intake Total 600 / 600 960 / 960
Balance 600 / 600 960 / 960
Intake:
Oral fluids 600 / 600 960 / 960
Other:
Number of approximated MODERATE 2 2
amounts of urine
Number of approximated LARGE 1
amounts of urine
Vital Signs
Temp Pulse Resp BP Pulse Ox
98.6 F 80 18 110/77 97
03/28/24 07:00 03/28/24 07:00 03/28/24 07:00 03/28/24 07:00 03/28/24 07:00
Lab Results
03/28/24 05:23
03/28/24 05:23
Calcium 8.6 mg/dl (8.4-10.2) 03/28/24 05:23
Total Bilirubin 0.4 mg/dl (0.2-1.3) 03/28/24 05:23
AST 15 U/L (14-36) 03/28/24 05:23
ALT 29 U/L (0-35) 03/28/24 05:23
Alkaline Phosphatase 85 U/L (38-126) 03/28/24 05:23
Total Protein 5.8 g/dl (6.3-8.2) L 03/28/24 05:23
Albumin 3.1 g/dl (3.5-5.0) L 03/28/24 05:23
Physical Exam
-
Gen: NAD
Abd: soft, ttp to periumbilical area, pain elicited in this area with palp to LLQ
--- NOTE | 2024-03-28 11:01 | PN.CDI ---
CDI
- -
CDI:
Physician Documentation Request
Admit Date: 03/25/24 14:25
Dear Doctor Gene,
Please review the following and provide your response in the progress notes.
Clinical Indicators:
Pt admitted with Sigmoid diverticulitis with abscess and localized peritonitis
Documented per H&P,' WBC 12.6 with left shift...Mild Sepsis POA ...'
On admission WBC 12.6,HR 93 on IV Zosyn to be Discharged on PO Augmentin
Documented per General surgery consult, ' ...but last night she had a fever to 101.3.... White blood cell count 12.6 with neutrophil shift...'
Please update the Status of sepsis documented in H&P:
Sepsis-POA now resolved
- Systemic manifestations of infection, with 2 or more SIRS criteria which include:
- Fever >100.4 degrees F or hypothermia < 96.8 degrees F
- Leukocytosis - WBC > 12,000 or leukopenia - WBC < 4,000 or > 10% bands
- Tachycardia > 90 beats per minute
- Tachypnea - RR > 20 breaths per minute or PaCO2 , 32mmHg
Source: Merck Manual 2013
Sepsis Ruled out
Other
Use of terms such as suspected, likely, concern for, or probable (associated with a specific diagnosis that is being evaluated, monitored, or treated as if it exists) are acceptable and can be coded in the inpatient setting, when documented at the
time of discharge.
Thank you,
Brenda Bean RN
CDI Specialist
[place] [facility]
Please use your independent medical judgment in providing your response.
--- NOTE | 2024-03-28 11:08 | PN.CDI ---
CDI
- -
CDI:
Physician Documentation Request
Admit Date: 03/25/24 14:25
Dear Doctor Gene,
Please review the following and provide your response in the progress notes.
Clinical Indicators:
Height: 5 ft 2 in
Weight:222 lb
BMI:40.6
If possible, please provide an associated diagnosis related to the abnormal BMI, such as:
BMI > or = to 40
Overweight
Obesity:
Due to excess calories
Drug induced
Due to other cause
Severe or morbid obesity:
- Other
Use of terms such as suspected, likely, concern for, or probable (associated with a specific diagnosis that is being evaluated, monitored, or treated as if it exists) are acceptable and can be coded in the inpatient setting, when documented at the
time of discharge.
Thank you,
Brenda Bean RN
CDI Specialist
[place] [facility]
Please use your independent medical judgment in providing your response.
--- NOTE | 2024-03-28 12:48 | W.PN.HOSP.TC ---
Today's Communication/Plan
-
Monitor vital signs and see plan
Patient not comfortable to be discharged today, potential discharge tomorrow
Continue monitor symptoms with diet
Continue antibiotics
Assessment / Plan
Assessment / Plan
General: Comfortable, Conversant and Pain
HEENT: NormoCephalic, Anicteric, Moist mucous membranes
Respiratory: Clear; No Wheezes, Rales or Rhonchi
Cardiac: S1/S2 and Regular Rhythm; No Murmur
GI: Soft, Non Distended, Normal Bowel Sounds, Tender (Left lower quadrant, suprapubic)
Musculoskeletal: No Edema
Neuro: AO x 3, No Motor Deficits, Nonfocal/grossly intact
Psych: Calm
Acute diverticulitis sigmoid colon with intramural abscess
sepsis POA 2/2 above
follow bcx NGTD
now advance to low residue diet, will continue to monitor
DC IVF
Hopeful discharge tomorrow if continues to improve, patient doesnt feel she is ready for dc today, still has crampiness with eating; surgery following
cw abx
pain control, IV Zofran
- pt counseled on follow up for colonoscopy post recovery
CT abdomen pelvis with IV contrast:
1. Severe acute diverticulitis in the mid sigmoid colon
2. 2.6 intramural abscess in the wall of the sigmoid colon 2.0 x 1.7 x 2.6 cm
3. Minimal pelvic ascites
4. Mild hepatomegaly
5. Tiny obstructing bilateral intrarenal calculi
#Acute transaminitis likely reactive
-Follow CMP
#ADHD
Patient takes methylphenidate 36 mg Tuesday through Tuesday but not Tuesday or Tuesday; per patient she takes only when she is working. spoke with pharmacy,will hold it for now
Morbid obesity due to excess calories
DVT prophylaxis
SCDs
Full code
Anticipated Discharge: Within 24 hours
Subjective/Interval History
-
Date of Service: March 28, 2024
still has some pain
Objective Data
-
Labs:
Laboratory Results
03/28/24
05:23
WBC 10.1
Hgb 11.2 L
Hct 33.7 L
Plt Count 279
Sodium 139
Potassium 4.2
Chloride 107
Carbon Dioxide 25
BUN 7
Creatinine 0.7
Glucose 102 H
Calcium 8.6
Total Bilirubin 0.4
AST 15
ALT 29
Alkaline Phosphatase 85
Vital Signs:
Vital Signs
Temp Pulse Resp BP Pulse Ox
98.6 F 80 18 110/77 97
03/28/24 07:00 03/28/24 07:00 03/28/24 07:00 03/28/24 07:00 03/28/24 07:00
I&O
03/27/24 03/28/24 03/29/24
06:59 06:59 06:59
Intake Total 600 / 600 960 / 960
Balance 600 / 600 960 / 960
--- NOTE | 2024-03-28 14:06 | CM ---
Case management following for d/c planning
Reviewed chart.
Continuing to monitor vital signs and symptoms with diet
Continue antibiotics
CM will continue to follow for d/c needs
Plan - anticipate home no needs
[2024-03-28 15:00] VITALS: BP 106/73
[2024-03-28] MEDS: TYLENOL 650 MG PO (18:31)
[2024-03-28 23:34] VITALS: BP 109/76
[2024-03-29] MEDS: ZOSYN 50 IV ×2 (02:13→08:52)
[2024-03-29 05:47] LABS: % Basophils 0.3 % (0-2); % Immature Granulocytes 0.5 % (0-0.5); % Lymphocytes 18.5 % (20.5-51.1); % Monocytes 6.2 % (1.7-9.3); % Neutrophils 71.5 % (42.2-75.2); Absolute Eosinophils 0.3 10^3/uL (0-0.7); Absolute Immature Granulocytes 0.1 10^3/uL (0-0.05); Absolute Lymphocytes 2.1 10^3/uL (1.2-3.4); Absolute Monocytes 0.7 10^3/uL (0.1-0.6); Hematocrit 33.3 % (37.0-47.0); Hemoglobin 11.4 g/dL (12.0-16.0); Mean Corp Hgb Conc. 34.2 g/dL (33.0-37.0); Mean Corpuscular Hgb 28.4 pg (27.0-31.0); Mean Platelet Volume 8.9 fL (7.4-10.4); Nucleated Red Blood Cells % 0 %; Platelet Count 313 10^3/uL (130-400); Red Blood Cell Count 4.01 10^6/uL (4.20-5.40); Red Cell Dist. Width 12.4 % (11.5-14.5); White Blood Cell Count 11.2 10^3/uL (4.8-10.8)
[2024-03-29 06:10] LABS: ALT (SGPT) 23 U/L (0-35); AST (SGOT) 18 U/L (14-36); Albumin 3.3 g/dl (3.5-5.0); Alkaline Phosphatase 83 U/L (38-126); Blood Urea Nitrogen 8 mg/dl (7-17); Calcium 9.2 mg/dl (8.4-10.2); Carbon Dioxide 25 mmol/L (22-30); Chloride 106 mmol/L (98-107); Estimated Creatinine Clearance 125 ml/min; Glucose 94 mg/dl (70-99); Potassium 4.2 mmol/L (3.5-5.1); Sodium 139 mmol/L (135-145); Total Bilirubin 0.5 mg/dl (0.2-1.3); eGFR > 60.00
[2024-03-29 07:30] VITALS: BP 109/73
--- NOTE | 2024-03-29 10:29 | CM ---
Planned d/c for today
Has ride home with family
Plan - anticipate home no needs
--- NOTE | 2024-03-29 10:36 | W.PN.GS2 ---
Today's Communication / Plan
-
`
Assessment / Plan
-
Assessment/plan: 33-year-old female presenting with acute sigmoid diverticulitis complicated by phlegmon extending into region of sigmoid colon mesentery and contained mural abscess. No remote free air or signs of free perforation.
AFVSS
Clinically resolving with tolerance of dietary advancement
-- DC on 10-day course of Augmentin and low residue diet for the next 4 weeks
-- patient will see Dr. Hunt as an outpatient.
Subjective Data
-
Date of Service: March 29, 2024
Patient seen and examined in follow-up
Tolerating low residue diet without exacerbation of abdominal pain, bloating or distention
Appetite well
No nausea or vomiting
Passing flatus and regular bowel movements
Objective Data
-
Intake and Output
03/28/24 03/29/24 03/30/24
06:59 06:59 06:59
Intake Total 960 / 960 1060 / 1060
Balance 960 / 960 1060 / 1060
Intake:
Oral fluids 960 / 960 960 / 960
IV piggybacks 100 / 100
Other:
Number of approximated MODERATE 2 3
amounts of urine
Vital Signs
Temp Pulse Resp BP Pulse Ox
98.6 F 74 16 109/73 96
03/29/24 07:30 03/29/24 07:30 03/29/24 07:30 03/29/24 07:30 03/29/24 07:30
Lab Results
03/29/24 05:26
03/29/24 05:26
Calcium 9.2 mg/dl (8.4-10.2) 03/29/24 05:26
Total Bilirubin 0.5 mg/dl (0.2-1.3) 03/29/24 05:26
AST 18 U/L (14-36) 03/29/24 05:26
ALT 23 U/L (0-35) 03/29/24 05:26
Alkaline Phosphatase 83 U/L (38-126) 03/29/24 05:26
Total Protein 6.0 g/dl (6.3-8.2) L 03/29/24 05:26
Albumin 3.3 g/dl (3.5-5.0) L 03/29/24 05:26
Physical Exam
-
NAD AAOx3
ABD: Soft, nondistended, mild tenderness palpation suprapubic and left lower quadrant. No residual rebound rigidity or guarding or localized peritoneal signs.
--- NOTE | 2024-03-29 11:09 | W.PN.HOSP.TC ---
Today's Communication/Plan
-
Monitor vital signs and see plan
switch abx to oral on discharge
Time of discharge 37-minutes
Assessment / Plan
Assessment / Plan
General: Comfortable, Conversant and Pain
HEENT: NormoCephalic, Anicteric, Moist mucous membranes
Respiratory: Clear; No Wheezes, Rales or Rhonchi
Cardiac: S1/S2 and Regular Rhythm; No Murmur
GI: Soft, Non Distended, Normal Bowel Sounds, Tender (Left lower quadrant, suprapubic)
Musculoskeletal: No Edema
Neuro: AO x 3, No Motor Deficits, Nonfocal/grossly intact
Psych: Calm
Acute diverticulitis sigmoid colon with intramural abscess
sepsis POA 2/2 above
follow bcx NGTD
now advance to low residue diet, will continue to monitor
DC IVF
DC today as patient symptoms continue to improve; surgery following
cw abx, switch to p.o. for 10 more days
pain control, IV Zofran
- pt counseled on follow up for colonoscopy post recovery
CT abdomen pelvis with IV contrast:
1. Severe acute diverticulitis in the mid sigmoid colon
2. 2.6 intramural abscess in the wall of the sigmoid colon 2.0 x 1.7 x 2.6 cm
3. Minimal pelvic ascites
4. Mild hepatomegaly
5. Tiny obstructing bilateral intrarenal calculi
#Acute transaminitis likely reactive
-Follow CMP
#ADHD
Patient takes methylphenidate 36 mg Tuesday through Tuesday but not Tuesday or Tuesday; per patient she takes only when she is working. spoke with pharmacy,will hold it for now
Morbid obesity due to excess calories
DVT prophylaxis
SCDs
Full code
Anticipated Discharge: Today
Subjective/Interval History
-
Date of Service: March 29, 2024
Feeling better today
Objective Data
-
Labs:
Laboratory Results
03/29/24
05:26
WBC 11.2 H
Hgb 11.4 L
Hct 33.3 L
Plt Count 313
Sodium 139
Potassium 4.2
Chloride 106
Carbon Dioxide 25
BUN 8
Creatinine 0.7
Glucose 94
Calcium 9.2
Total Bilirubin 0.5
AST 18
ALT 23
Alkaline Phosphatase 83
Vital Signs:
Vital Signs
Temp Pulse Resp BP Pulse Ox
98.6 F 74 16 109/73 96
03/29/24 07:30 03/29/24 07:30 03/29/24 07:30 03/29/24 07:30 03/29/24 07:30
I&O
03/28/24 03/29/24 03/30/24
06:59 06:59 06:59
Intake Total 960 / 960 1060 / 1060
Balance 960 / 960 1060 / 1060
--- NOTE | 2024-03-29 11:19 | W.DCSUMMARY ---
Discharge Summary
Discharge Data
Date of Admission: 03/25/24
Date of Discharge: 03/29/24
-
Pending Results: No
Hospital Course
33-year-old female with past medical history of ADHD, morbid obesity came to the hospital with abdominal pain known to have acute diverticulitis of the sigmoid colon with intramural abscess. Patient was seen by surgery throughout hospitalization.
Initially patient was started on IV antibiotic which was later transitioned to p.o. antibiotics to complete the course. Surgery recommended patient to follow-up with them closely outpatient for colonoscopy. Once patient symptoms were improving and
she was able to tolerate low residue diet, she was then discharged home with instructions to follow-up with all her physicians outpatient.
Discharge Plan
-
Patient Disposition: Home (Routine Discharge)
Discharge Diagnosis/Procedures: Acute Diverticulitis with intramural abscess
Diet: Low Fiber
Additional Diets: Low fiber diet for the next 2-3 weeks then add back whole grains, fruits and vegetables slowly as tolerated
Referrals:
Luis Dominguez MD [Family Provider] - in less than 1 week
Vincent Hunt MD [Active] - in four to six weeks
Prescriptions:
New
acetaminophen 325 mg Tablet
650 mg PO Q4HPRN PRN (Reason: mild pain/ODONNELL/temp> 100.4F) Qty: 0 0RF
amoxicillin-pot clavulanate 875-125 mg tablet
1 tab PO BID Qty: 20 0RF
Continued
methylphenidate HCl 36 mg Tablet Extended Release 24hr
36 mg PO [id number]
Discontinued
ibuprofen [Advil] 200 mg Tablet
200 mg PO TIDPRN PRN (Reason: mild pain)
Discharge Orders:
Discharge Patient (As Directed); Ordered 03/29/24
Ordered By: Tello Mills
Discharge Date and Time
Discharge Date/Time: 03/29/24 13:27
Print Language: ICELANDIC
[2024-03-29 13:21] VITALS: BP 125/81
== END 2024-03-29 13:27 | disposition home or self-care (01) | DRG 871 ==
LOC: 3 WEST ACU 14:25
PROVIDERS: Clinical Nurse Specialist Family Health; ADMITTING PHYSICIAN Internal Medicine; ATTENDING PHYSICIAN Internal Medicine; CONSULT PHYSICIAN Surgery; EMERGENCY PHYSICIAN Emergency Medicine; FAMILY PHYSICIAN Family Medicine
DX: A41.9 Sepsis, unspecified organism (principal); K65.1 Peritoneal abscess; K65.8 Other peritonitis; R18.8 Other ascites; Z68.41 Body mass index [BMI] 40.0-44.9, adult; K57.20 Diverticulitis of large intestine with perforation and abscess without bleeding; F90.9 Attention-deficit hyperactivity disorder, unspecified type; E66.01 Morbid (severe) obesity due to excess calories
CPT/HCPCS: 74177; 80053; 81003; 81015; 83605; 83690; 84703; 85025; 87040; 87086; 96361; 96365; 96375; 99285; Q9967

== ENCOUNTER → 2024-07-11 06:16 | Day surgery (SDC) | payer OTHER, SELFPAY | LOC: GI 06:16 | PROVIDERS: ATTENDING PHYSICIAN Surgery | DX: K57.30 Diverticulosis of large intestine without perforation or abscess without bleeding (principal); Z87.19 Personal history of other diseases of the digestive system | CPT/HCPCS: 45378 ==

== ENCOUNTER → 2025-07-17 15:04 | Outpatient (REF) | payer OTHER, SELFPAY | LOC: RAD 15:04 | PROVIDERS: ATTENDING PHYSICIAN Nurse Practitioner Family; FAMILY PHYSICIAN Physician Assistant Medical | DX: R10.9 Unspecified abdominal pain (principal) | CPT/HCPCS: 74177; Q9967 ==